=== PATIENT | male | born 1955 | race Asian ===

== ENCOUNTER 2022-12-05 11:09 | Day surgery (SDC) | payer MEDICARE, MEDICAID, SELFPAY ==
--- NOTE | 2022-12-05 | PATH_ITS ---
[facility] Accession Number: [id number] No. of containers..02 Tissue . 01 Material submitted: . PART A: cecum - CECUM POLYP PART B: colon - ASCENDING COLON POLYP . 01 Diagnosis: A. Cecum, Polyp, Biopsy: Tubular adenoma. . B. Ascending Polyp x1, Biopsy: Sessile serrated adenoma. RANDELL 12/08/2022 0537 Local . 01 Electronically signed: . Yaima Smith MD, Pathologist NPI- [id number] . 01 Gross description: . Part A: CECUM POLYP: Received in formalin are 2 fragment(s) of padilla, soft tissue measuring 0.2 x 0.1 x 0.1 cm to 0.2 x 0.1 x 0.1 cm submitted entirely in 1 cassette(s) Part B: ASCENDING COLON POLYP: Received in formalin are 3 fragment(s) of padilla, soft tissue measuring 0.5 x 0.3 x 0.1 cm to 0.2 x 0.1 x 0.1 cm submitted entirely in 1 cassette(s) /CPE 12/06/2022 0709 Local . 01 Pathologist provided ICD-10: D12.0, D12.2 . 01 CPT . 299582, 164705 Specimen Comment: A courtesy copy of this report has been sent to [phone] Performed at: 01 [facility] [address] [place] [address], [place], [place] [id number] MD Sekou James MD Phone: [phone]
--- NOTE | 2022-12-05 11:31 | PM.HP.1 ---
History of Present Illness History of Present Illness Date Patient Seen: 12/05/22 Time Patient Seen: 11:31 Chief complaint: Screening Colonoscopy Narrative: Here for screening colonoscopy Meds Home Medications and Allergies Allergies Allergy/AdvReac Type Severity Reaction Status Date / Time No Known Drug Allergies Allergy Verified 12/05/22 11:24 Review of Systems Review of Systems ROS: Yes All systems reviewed with the patient and are negative except as otherwise documented Exam Const General: cooperative HENMT Head: normal to inspection Eyes General: appearance normal, both eyes and all related structures Neck Neck: normal visual inspection Chest Chest: normal inspection of the chest Resp Effort & Inspection: normal respiratory effort Cardio Rate: regular rate GI Inspection: normal to inspection Skin General: no rashes or lesions noted Neuro General: patient alert and patient awake Extrem General: normal to inspection and no pedal edema Psych Appearance: grossly normal Assessment & Plan Assessment & Plan narrative: 67-year-old male here for colon cancer screening. Colonoscopy is pursued today.
--- NOTE | 2022-12-05 11:32 | PM.PREOP ---
Pre-operative Note Interval Note History & Physical reviewed/Exam performed by Physician: Yes Changes to H&P: No ASA Class (for procedural sedation): II
[2022-12-05] MEDS: LACTATED RINGERS 1,000 ML 100 ML IV (11:33)
[2022-12-05 11:47] VITALS: BP 175/92; PULSE 89; RESP 16; TEMP 36.3; O2SAT 100; BMI 21.1
--- NOTE | 2022-12-05 12:41 | PM.OP.COLON ---
Operative Date/Time/Diagnoses Date of procedure: 12/05/22 Time of procedure: 12:41 Pre-op diagnosis: Colon cancer screening Post-op diagnosis: same Procedure & Clinicians Study performed: Colonoscopy with cold forceps polypectomy and hot snare polypectomy Same procedure as scheduled: Yes Indications: Colon cancer screening Surgeon: Didier iMshra Procedure Notes SCOAP/Timeout: Done Procedure in detail: After the risks and benefits were explained, written and verbal informed consent was obtained. The patient was brought into the procedure room and placed into the left lateral decubitus position. Please see nurse kettle coordinator notes for sedation details. Digital rectal examination was accomplished. The scope was introduced into the patient and advanced under direct visualization to the cecum as identified by the appendiceal orifice and ileocecal valve. The scope was slowly withdrawn to carefully examine the mucosa for any defects or lesions. Comprehensive imaging was accomplished throughout the rectum including the dentate line. The colon was decompressed, the scope was then removed from the patient who tolerated the procedure well. Pediatric colonoscope Bowel prep adequate Scope withdrawal time: 12 minutes Sedation minutes: 29 Complications: none Impression: Tortuous colon. Very difficult navigation. In the cecum there was a diminutive polyp removed with cold forceps. In the ascending colon there was an approximately 9-10 mm polyp removed with hot snare. No additional pathology was appreciated throughout. Endoscopic diagnosis Colon polyps Post-procedure Plan for aftercare: 1. Await histopathology. 2. Contingent on the histopathology results, repeat colonoscopy will be suggested for 3-5 years. Disposition: PACU
[2022-12-05 12:42] VITALS: BP 110/65; PULSE 74; RESP 18; TEMP 36.2; O2SAT 100
[2022-12-05 12:47] VITALS: BP 116/75; PULSE 79; RESP 20; O2SAT 100
[2022-12-05 12:51] VITALS: BP 146/84; PULSE 75; RESP 16; O2SAT 100
== END 2022-12-05 13:15 | disposition home or self-care (01) ==
PROVIDERS: PCP Family Medicine; Referring Provider Internal Medicine Gastroenterology; Visit Provider Internal Medicine Gastroenterology
PROC: 0DJD8ZZ Inspection of Lower Intestinal Tract, Via Natural or Artificial Opening Endoscopic (ICD-10-PCS; CPT 45378; principal; 2022-12-05 12:00)
DX: Z12.11 Encounter for screening for malignant neoplasm of colon (principal); D12.0 Benign neoplasm of cecum; D12.2 Benign neoplasm of ascending colon
CPT/HCPCS: 45385; 45380; J2704